=== PATIENT | male | born 1985 | race Two or more races ===

== ENCOUNTER 2024-11-21 13:44 | Emergency (ER) | payer MEDICAID, SELFPAY ==
[2024-11-21 14:16] VITALS: BP 112/79; PULSE 92; RESP 18; TEMP 37.6; O2SAT 96; BMI 19.1
--- NOTE | 2024-11-21 14:20 | EDNOTE_ITS ---
<Statement entered by Grace Gill MD - 11/21/24 17:50> As co-signing physician, I was present and available for consult prn. I concur with the plan and care as documented by the midlevel provider. ED Skin Abcess FB-RME/HPI General Chief complaint: Animal Bite Stated complaint: BUG BITE R) THIGH, HAPPENED LAST NIGHT Time Seen by Provider: 11/21/24 13:47 Arrival date/time: 11/21/24 13:44 39-year-old male presents emerged part with a complaint of insect bite to the right upper leg patient for symptoms ongoing for the last couple of days. There are no other associated symptoms or aggravating factors no other modifying factors, patient denies taking medication before coming to ER today Limitations: no limitations Related Data Previous Rx's ?Medication ?Instructions ?Recorded clindamycin HCl 300 mg capsule 300 mg PO TID 7 days #2 1 caps 11/21/24 ibuprofen 600 mg tablet 600 mg PO Q6H #30 tabs 11/21 mupirocin 2 % topical ointment 1 applic topical TID 10 days #22 11/21/24 grams Allergies Allergy/AdvReac Type Severity Reaction Status Date / Time No Known Allergies Allergy Verified 11/21/24 13:47 Review of Systems Review of Systems Systems Reviewed: All systems reviewed, normal except as documented Constitutional Constitutional: Reports system reviewed and no additional complaints, except as documented, Denies fever(s) and Denies headache(s) Eyes Eyes: Reports system reviewed and no additional complaints, except as documented and Denies blurry vision ENT Ears, Nose, Mouth, and Throat: Reports system reviewed and no additional complaints, except as documented, Denies headache(s), Denies nasal congestion and Denies nasal discharge Cardiovascular Cardiovascular: Reports system reviewed and no additional complaints, except as documented, Denies chest pain and Denies dyspnea Respiratory Respiratory: Reports system reviewed and no additional complaints, except as documented, Denies chest congestion, Denies cough and Denies dyspnea Gastrointestinal Gastrointestinal: Reports system reviewed and no additional complaints, except as documented and Denies abdominal pain Integumentary/Breasts Skin/Breast: Reports system reviewed and no additional complaints, except as documented, Denies rash and Reports other (Insect bite right leg) Neurologic Neurologic: Reports system reviewed and no additional complaints, except as documented, Reports as per HPI and Denies headache(s) Past Medical History Social History SMOKING STATUS: Current every day smoker ED Exam General Limitations: Present no limitations General appearance: Present alert and in no apparent distress Head Head exam: Present atraumatic Eye Eye exam: Present normal appearance, PERRL and EOMI ENT ENT exam: Present normal exam, normal oropharynx and mucous membranes moist Neck Neck exam: Present normal inspection, full ROM and trachea midline Chest Chest inspection: Present normal inspection and symmetric chest wall rise Respiratory Respiratory exam: Present normal lung sounds bilaterally Cardiovascular Cardiovascular exam: Present regular rate, normal rhythm and normal heart sounds Abdominal Exam Abdominal exam: Present soft and normal bowel sounds Extremities Exam Extremities exam: Present normal inspection and full ROM Back Exam Back exam: Present normal inspection and full ROM Neurological Exam Neurological exam: Present alert, oriented X3 and CN II-XII intact Psychiatric Psychiatric exam: Present normal affect and normal mood Skin Skin exam: Present warm, dry and other (Infection right leg) Course Quality Measures none Vital Signs Vital signs: Vital Signs Temperature 99.6 F 11/21/24 14:16 Pulse Rate 92 11/21/24 14:16 Respiratory Rate 18 11/21/24 14:16 Blood Pressure 112/79 11/21/24 14:16 Pulse Oximetry (%) 96 11/21/24 14:16 Oxygen Delivery Method Room Air 11/21/24 14:16 O2 saturation 96% r/a wnl Skin / Abscess / Foreign Body MDM Narrative MDM Narrative:: 39-year-old male presents emerged part with a complaint of insect bite to the right upper leg patient for symptoms ongoing for the last couple of days. There are no other associated symptoms or aggravating factors no other modifying factors, patient denies taking medication before coming to ER today On exam patient well-appearing patient does not appear ill or toxic patient does not appear in any acute distress On exam patient has what appears to be an insect bite to the right upper leg no evidence of an abscess Patient discharged home in no distress to follow-up with primary care doctor in the next 24 to 48 hours and for any worsening symptoms to return to the ER immediately Patient data External records reviewed:: [facility] previous records Clinical information provided by:: patient Social determinants that could affect healthcare access:: none Patient has the following chronic illnesses:: none How is presenting disease/condition affected by chronic disease/condition?: no chronic disease Evaluation data The following diagnostics were reviewed and interpreted by me:: other (specify) (na ) Lab and/or radiology exams considered but not ordered:: considered not ordered Interpretation Summary: given Medications / Prescriptions Medications or Prescriptions considered but not ordered:: given Medication administrations:: given Consultations Consultation(s) initiated? (list below): No Diagnosis Skin/Abscess Differential Diagnosis: abscess of skin or subcutaneous tissue, cellulitis and insect bites Most likely diagnosis given after review of the tests above:: insect bite Admission Indicated Admission indicated?: not indicated Admission Request Was there a request for admission?: No Disposition Plan Disposition Plan: Discharge Discharge Attestation Discharge Attestation: The patient and all family members were given an opportunity to ask questions and understood the discharge instructions. Discharge instructions specifically effects, indications for sooner follow up or return to the emergency department, and the expected course of current diagnosis. Patient condition: Stable Discharge Plan Plan Patient Disposition: HOME (Self Care) Disposition Comment: Stable Prescriptions/Referrals Prescriptions/Med Rec: New clindamycin HCl 300 mg capsule 300 mg PO TID 7 Days Qty: 21 0RF mupirocin 2 % ointment 1 applic topical TID 10 Days Qty: 22 0RF ibuprofen 600 mg tablet 600 mg PO Q6H Qty: 30 0RF Problem List Clinical Impression: Insect bite of leg, right Patient/Caregiver Discharge Instructions Education Materials: ED Insect Bite Additional Instructions: Please follow up with your primary care doctor in the next 24-48hrs for any worsening symptoms return here immediately Print Language: Salvadorean Stand Alone Forms: Geovanna Award Info., Patient Portal Info Letter PA/CORNEILA Supervising Physician PA/CORNELIA Supervising Physician: Dr. GILL
== END 2024-11-21 15:25 | disposition home or self-care (01) ==
LOC: SERX 14:36
PROVIDERS: Emergency Provider Emergency Medicine
DX: S80.861A Insect bite (nonvenomous), right lower leg, initial encounter (principal); W57.XXXA Bitten or stung by nonvenomous insect and other nonvenomous arthropods, initial encounter
CPT/HCPCS: 99281